=== PATIENT | female | born 2000 | race African-American/Black ===

== ENCOUNTER 2019-04-14 15:51 | Emergency (ER) | payer MEDICAID ==
[~2019-04-14] VITALS: Ht 167.6 cm; Wt 82.0 kg
[2019-04-14 16:09] VITALS: BP 130/77
== END 2019-04-14 19:57 | disposition left against medical advice (07) ==
LOC: ER 15:51
DX: Z53.21 Procedure and treatment not carried out due to patient leaving prior to being seen by health care provider (principal)